=== PATIENT | female | born 1960 ===

== ENCOUNTER 2018-11-23 18:34 | Inpatient (IN) | payer MEDICARE ==
[~2018-11-23] VITALS: Ht 157.5 cm; Wt 86.3 kg
[2018-11-23] MEDS ORDERED: LISI10TA5 PO (18:59)
[2018-11-23] MEDS ORDERED: IBUP-1953 PO (18:59)
[2018-11-23] MEDS ORDERED: SULF1TAB48 PO (18:59)
[2018-11-23] MEDS ORDERED: DULO60CA45 PO (18:59)
[2018-11-23] MEDS ORDERED: VANCOMYCIN IV 1,000 MG in IV DEXTROSE 5% 250 ML IV ONE (19:00)
[2018-11-23] MEDS ORDERED: VANCOMYCIN IV 200 ML ONE (19:08)
[2018-11-23 19:25] LABS: BASOPHILS # (AUTO) 0.1 K/uL (0.0-8.0); BASOPHILS % (AUTO) 0.6 % (0.0-2.0); EOSINOPHILS # (AUTO) 0.5 K/uL (0.0-0.7); EOSINOPHILS % (AUTO) 4.7 % (0.0-7.0); HEMATOCRIT 38.2 % (31.2-41.9); LYMPHOCYTES # (AUTO) 1.2 K/uL (20.0-40.0); LYMPHOCYTES % (AUTO) 12.7 % (20.5-51.5); MEAN CORPUSCULAR HEMOGLOBIN 29.3 uug (24.7-32.8); MEAN CORPUSCULAR HGB CONC 34 g/dL (32.3-35.6); MEAN CORPUSCULAR VOLUME 86.3 fL (75.5-95.3); MONOCYTES # (AUTO) 0.8 K/uL (2.0-10.0); MONOCYTES % (AUTO) 8.4 % (0.0-11.0); NEUTROPHILS # (AUTO) 7.1 K/uL (1.8-8.9); NEUTROPHILS % (AUTO) 73.6 % (38.5-71.5); PLATELET COUNT (AUTO) 323 K/uL (179-408); RED BLOOD CELL COUNT(AUTO) 4.43 MIL/uL (3.63-4.92); WHITE BLOOD COUNT (AUTO) 9.7 K/uL (3.8-11.8)
[2018-11-23 19:50] LABS: CREATININE 1.2 mg/dL (0.6-1.3); POTASSIUM 4.9 mmol/L (3.5-5.1)
[2018-11-23 19:55] LABS: BILIRUBIN,DIRECT 0.1 mg/dL (0.0-0.2); BILIRUBIN,TOTAL 0.3 mg/dL (0.2-1.0); TOTAL PROTEIN, SERUM 9.1 g/dL (6.4-8.2)
[2018-11-23] MEDS ORDERED: MORPHINE SULFATE 4 MG/1 ML DISP.SYRIN ONE (20:42)
[2018-11-23] MEDS ORDERED: ONDANSETRON 4 MG/2 ML VIAL ONE (20:42)
[2018-11-23] MEDS ORDERED: ONDANSETRON 4 MG/2 ML VIAL IV ONE (20:45)
[2018-11-23] MEDS ORDERED: MORPHINE SULFATE 4 MG/1 ML DISP.SYRIN IV ONE (20:45)
[2018-11-23 21:15] VITALS: BP 141/74
[2018-11-23] MEDS ORDERED: ACETAMINOPHEN 325 MG TABLET PO PRN (22:30)
[2018-11-23] MEDS ORDERED: MAGNESIUM HYDROXIDE 30 ML LIQUID UDC PO PRN (22:30)
[2018-11-23] MEDS ORDERED: Z GUARD REMEDY PASTE 57 GM TUBE TOP PRN (22:30)
[2018-11-23] MEDS ORDERED: ONDANSETRON 4 MG/2 ML VIAL IV PRN (22:30)
[2018-11-23] MEDS ORDERED: ZOLPIDEM 5 MG TABLET PO PRN (22:30)
[2018-11-23] MEDS: HYDROCODONE/APAP 10-325 MG TABLET PO PRN (23:35)
[2018-11-23] MEDS: IBUPROFEN 400 MG TABLET PO PRN (23:39)
[2018-11-24 03:46] VITALS: BP 140/60
[2018-11-24 09:26] LABS: BASOPHILS # (AUTO) 0.1 K/uL (0.0-8.0); BASOPHILS % (AUTO) 0.8 % (0.0-2.0); EOSINOPHILS # (AUTO) 0.4 K/uL (0.0-0.7); EOSINOPHILS % (AUTO) 5.7 % (0.0-7.0); HEMATOCRIT 34.4 % (31.2-41.9); HEMOGLOBIN 11.7 g/dL (10.9-14.3); MEAN CORPUSCULAR HEMOGLOBIN 28.9 uug (24.7-32.8); MEAN CORPUSCULAR HGB CONC 34 g/dL (32.3-35.6); MONOCYTES # (AUTO) 0.7 K/uL (2.0-10.0); MONOCYTES % (AUTO) 10.3 % (0.0-11.0); NEUTROPHILS # (AUTO) 4.6 K/uL (1.8-8.9); NEUTROPHILS % (AUTO) 68.2 % (38.5-71.5); PLATELET COUNT (AUTO) 299 K/uL (179-408); RED BLOOD CELL COUNT(AUTO) 4.05 MIL/uL (3.63-4.92); WHITE BLOOD COUNT (AUTO) 6.8 K/uL (3.8-11.8)
[2018-11-24] MEDS: DULOXETINE 60 MG CAPSULE.DR PO SCH (09:34)
[2018-11-24] MEDS: IBUPROFEN 400 MG TABLET PO PRN ×2 (09:39→21:03)
[2018-11-24 09:49] LABS: BILIRUBIN,TOTAL 0.2 mg/dL (0.2-1.0); CREATININE 1.2 mg/dL (0.6-1.3); MAGNESIUM 2.3 mg/dL (1.8-2.4); PHOSPHOROUS 4.4 mg/dL (2.5-4.9); POTASSIUM 3.8 mmol/L (3.5-5.1); TOTAL PROTEIN, SERUM 7.7 g/dL (6.4-8.2)
[2018-11-24] MEDS: LISINOPRIL 10 MG TABLET PO SCH (11:04)
[2018-11-24] MEDS: HYDROCODONE/APAP 10-325 MG TABLET PO PRN ×2 (11:56→21:27)
[2018-11-24 12:28] LABS: THYROID STIMULATING HORMONE 1.924 mIU/mL (0.358-3.740)
[2018-11-24 13:33] LABS: *BILIRUBIN,URIN NEGATIVE (NEGATIVE); *BLOOD, URINE NEGATIVE (NEGATIVE); *CLARITY,URINE CLEAR (CLEAR); *COLOR,URINE YELLOW (YELLOW); *KETONES,URINE NEGATIVE (NEGATIVE); *UROBILINOGEN,URINE 0.2 E.U./dl (NORMAL); LEUKOCYTE ESTERASE ,URINE 1+ (NEGATIVE); NITRITE, URINE NEGATIVE (NEGATIVE); UGLUCOSE NEGATIVE (NEGATIVE)
[2018-11-24 13:39] LABS: BACTERIA,URINE FEW /HPF (NONE SEEN); RBC,URINE 0-3 /HPF (0-3); SQUAMOUS EPITHELIAL CELL,UR FEW /HPF (NONE SEEN); WBC,URINE 20-50 /HPF (0-3)
[2018-11-24 16:00] VITALS: BP 140/83
[2018-11-24 19:29] VITALS: BP 140/81
[2018-11-24] MEDS ORDERED: LEVOFLOXACIN 500 MG TABLET PO SCH (21:45)
[2018-11-24] MEDS ORDERED: VANCOMYCIN IV 1 G in PREMIXED 0 EACH IV ONE (22:00)
[2018-11-24] MEDS: LEVOFLOXACIN 500 MG TABLET PO SCH (22:41)
[2018-11-24] MEDS ORDERED: VANCOMYCIN IV 200 ML ONE (22:50)
[2018-11-25] MEDS: HYDROCODONE/APAP 10-325 MG TABLET PO PRN ×3 (02:33→18:41)
[2018-11-25 03:27] VITALS: BP 119/77
[2018-11-25 08:00] VITALS: BP 123/63
[2018-11-25] MEDS: LISINOPRIL 10 MG TABLET PO SCH (08:54)
[2018-11-25] MEDS: DULOXETINE 60 MG CAPSULE.DR PO SCH (08:54)
[2018-11-25] MEDS: IBUPROFEN 400 MG TABLET PO PRN ×2 (08:55→18:53)
[2018-11-25 09:36] LABS: CREATININE 0.9 mg/dL (0.6-1.3); POTASSIUM 4.2 mmol/L (3.5-5.1)
[2018-11-25 09:40] LABS: MAGNESIUM 2.3 mg/dL (1.8-2.4); PHOSPHOROUS 3.5 mg/dL (2.5-4.9)
[2018-11-25 10:37] LABS: BASOPHILS % (AUTO) 0.9 % (0.0-2.0); EOSINOPHILS # (AUTO) 0.3 K/uL (0.0-0.7); EOSINOPHILS % (AUTO) 5.9 % (0.0-7.0); HEMATOCRIT 35.2 % (31.2-41.9); HEMOGLOBIN 11.7 g/dL (10.9-14.3); LYMPHOCYTES # (AUTO) 0.9 K/uL (20.0-40.0); LYMPHOCYTES % (AUTO) 16.3 % (20.5-51.5); MEAN CORPUSCULAR HEMOGLOBIN 28.6 uug (24.7-32.8); MEAN CORPUSCULAR HGB CONC 33 g/dL (32.3-35.6); MONOCYTES # (AUTO) 0.6 K/uL (2.0-10.0); NEUTROPHILS # (AUTO) 3.5 K/uL (1.8-8.9); NEUTROPHILS % (AUTO) 64.9 % (38.5-71.5); PLATELET COUNT (AUTO) 294 K/uL (179-408); RED BLOOD CELL COUNT(AUTO) 4.09 MIL/uL (3.63-4.92); WHITE BLOOD COUNT (AUTO) 5.3 K/uL (3.8-11.8)
[2018-11-25 12:00] VITALS: BP 138/68
[2018-11-25 16:00] VITALS: BP 143/62
[2018-11-25] MEDS: VANCOMYCIN IV 1,250 MG in IV DEXTROSE 5% 500 ML IV SCH (17:20)
[2018-11-25 19:38] VITALS: BP 104/72
[2018-11-25] MEDS ORDERED: VANCOMYCIN IV 1,250 MG in IV DEXTROSE 5% 500 ML IV SCH (20:00)
[2018-11-25] MEDS: LEVOFLOXACIN 500 MG TABLET PO SCH (21:57)
[2018-11-25] MEDS: CULTURELLE CAPSULE PO SCH (21:57)
[2018-11-26 03:37] VITALS: BP 127/74
[2018-11-26 06:45] LABS: CREATININE 0.8 mg/dL (0.6-1.3); PHOSPHOROUS 3.7 mg/dL (2.5-4.9); POTASSIUM 4.2 mmol/L (3.5-5.1)
[2018-11-26 06:51] LABS: BASOPHILS % (AUTO) 0.3 % (0.0-2.0); EOSINOPHILS # (AUTO) 0.4 K/uL (0.0-0.7); EOSINOPHILS % (AUTO) 7.2 % (0.0-7.0); HEMATOCRIT 35.4 % (31.2-41.9); HEMOGLOBIN 11.9 g/dL (10.9-14.3); LYMPHOCYTES # (AUTO) 1.3 K/uL (20.0-40.0); LYMPHOCYTES % (AUTO) 24.2 % (20.5-51.5); MEAN CORPUSCULAR HEMOGLOBIN 28.9 uug (24.7-32.8); MEAN CORPUSCULAR HGB CONC 34 g/dL (32.3-35.6); MEAN CORPUSCULAR VOLUME 85.9 fL (75.5-95.3); MONOCYTES # (AUTO) 0.7 K/uL (2.0-10.0); MONOCYTES % (AUTO) 12.8 % (0.0-11.0); NEUTROPHILS # (AUTO) 3.1 K/uL (1.8-8.9); NEUTROPHILS % (AUTO) 55.5 % (38.5-71.5); PLATELET COUNT (AUTO) 226 K/uL (179-408); RED BLOOD CELL COUNT(AUTO) 4.12 MIL/uL (3.63-4.92); WHITE BLOOD COUNT (AUTO) 5.6 K/uL (3.8-11.8)
[2018-11-26] MEDS ORDERED: POLYMYXIN B SULFATE 500,000 UNITS, BACITRACIN 50,000 UNITS, NORMAL SALINE 20 ML MC ONE ×3 (07:15)
[2018-11-26] MEDS ORDERED: BUPIVACAINE PF 0.5% 30 ML VIAL ONE (07:35)
[2018-11-26] MEDS ORDERED: LIDOCAINE HCL 1% 20 ML VIAL ONE (07:35)
[2018-11-26 08:13] LABS: EOSINOPHILS % (MANUAL) 6 % (0-8); LYMPHOCYTES % (MANUAL) 27 % (20-40); METAMYELOCYTES % 1 % (0-1); MONOCYTES % (MANUAL) 7 % (2-10); MYELOCYTES % 1 % (0-0); NEUTROPHILS % (MANUAL) 57 % (42-75)
[2018-11-26 08:16] LABS: REACTIVE LYMPHOCYTES 1 % (0-0)
[2018-11-26] MEDS: CULTURELLE CAPSULE PO SCH ×2 (09:00→20:42)
[2018-11-26] MEDS: LISINOPRIL 10 MG TABLET PO SCH (09:00)
[2018-11-26] MEDS: DULOXETINE 60 MG CAPSULE.DR PO SCH (09:00)
[2018-11-26] MEDS ORDERED: FENTANYL CITRATE 100 MCG/2 ML AMPUL ONE ×2 (09:25→10:24)
[2018-11-26] MEDS ORDERED: BUPIVACAINE/EPI PF 0.5% 10 ML VIAL ONE (10:49)
[2018-11-26 11:48] VITALS: BP 108/52
[2018-11-26] MEDS ORDERED: IRR NORMAL SALINE IRRIGATION 2000 ML BOTTLE IR ONE (11:59)
[2018-11-26] MEDS ORDERED: DEXAMETHASONE SOD PHOSPHATE 4 MG INJ IV ONE (11:59)
[2018-11-26] MEDS ORDERED: VECURONIUM BROMIDE 10 MG VIAL IV ONE (11:59)
[2018-11-26] MEDS ORDERED: PROPOFOL 200 MG/20 ML BOTTLE IV ONE (11:59)
[2018-11-26] MEDS ORDERED: SEVOFLURANE 250 ML BOTTLE IH ONE (11:59)
[2018-11-26] MEDS ORDERED: IV LACTATED RINGERS SOLUTION 1,000 ML BAG IV ONE (11:59)
[2018-11-26] MEDS ORDERED: SUCCINYLCHOLINE CHLORIDE 200 MG/10 ML VIAL MC ONE (11:59)
[2018-11-26] MEDS ORDERED: EPHEDRINE SULFATE 50 MG/ML AMPUL MC ONE (11:59)
[2018-11-26] MEDS: HYDROCODONE/APAP 10-325 MG TABLET PO PRN ×2 (12:03→20:44)
[2018-11-26] MEDS: VANCOMYCIN IV 1,250 MG in IV DEXTROSE 5% 500 ML IV SCH (12:43)
[2018-11-26 15:20] VITALS: BP 111/45
[2018-11-26] MEDS: KETOROLAC TROMETHAMINE 15 MG INJ IVP PRN ×2 (16:31→22:38)
[2018-11-26 20:24] VITALS: BP 123/69
[2018-11-26] MEDS: ASCORBIC ACID 500 MG TABLET PO SCH (20:42)
[2018-11-26] MEDS: LEVOFLOXACIN 500 MG TABLET PO SCH (20:45)
[2018-11-27] MEDS: HYDROCODONE/APAP 10-325 MG TABLET PO PRN ×2 (02:55→14:11)
[2018-11-27 06:14] VITALS: BP 124/68
[2018-11-27] MEDS: VANCOMYCIN IV 1,250 MG in IV DEXTROSE 5% 500 ML IV SCH ×3 (08:40→14:32)
[2018-11-27] MEDS: MULTIVITAMINS,THERAPEUTIC TABLET PO SCH (08:41)
[2018-11-27] MEDS: CULTURELLE CAPSULE PO SCH ×2 (08:41→20:40)
[2018-11-27] MEDS: ASCORBIC ACID 500 MG TABLET PO SCH ×2 (08:41→20:40)
[2018-11-27] MEDS: KETOROLAC TROMETHAMINE 15 MG INJ IVP PRN ×2 (08:41→18:01)
[2018-11-27] MEDS: DULOXETINE 60 MG CAPSULE.DR PO SCH (08:41)
[2018-11-27] MEDS: LISINOPRIL 10 MG TABLET PO SCH (08:42)
[2018-11-27 08:52] LABS: BASOPHILS # (AUTO) 0.1 K/uL (0.0-8.0); BASOPHILS % (AUTO) 1.4 % (0.0-2.0); EOSINOPHILS # (AUTO) 0.1 K/uL (0.0-0.7); HEMATOCRIT 33.8 % (31.2-41.9); HEMOGLOBIN 11.4 g/dL (10.9-14.3); LYMPHOCYTES # (AUTO) 1.4 K/uL (20.0-40.0); LYMPHOCYTES % (AUTO) 20.4 % (20.5-51.5); MEAN CORPUSCULAR HEMOGLOBIN 28.6 uug (24.7-32.8); MEAN CORPUSCULAR HGB CONC 34 g/dL (32.3-35.6); MEAN CORPUSCULAR VOLUME 84.8 fL (75.5-95.3); MONOCYTES # (AUTO) 0.7 K/uL (2.0-10.0); MONOCYTES % (AUTO) 10.3 % (0.0-11.0); NEUTROPHILS # (AUTO) 4.5 K/uL (1.8-8.9); NEUTROPHILS % (AUTO) 66.9 % (38.5-71.5); PLATELET COUNT (AUTO) 317 K/uL (179-408); RED BLOOD CELL COUNT(AUTO) 3.98 MIL/uL (3.63-4.92); WHITE BLOOD COUNT (AUTO) 6.7 K/uL (3.8-11.8)
[2018-11-27 08:59] LABS: CREATININE 0.8 mg/dL (0.6-1.3); MAGNESIUM 2.1 mg/dL (1.8-2.4); PHOSPHOROUS 3.8 mg/dL (2.5-4.9); POTASSIUM 3.8 mmol/L (3.5-5.1)
[2018-11-27] MEDS ORDERED: ZINC SULFATE 220 MG CAPSULE PO SCH (09:00)
[2018-11-27 11:30] VITALS: BP 125/68
[2018-11-27 15:00] VITALS: BP 133/64
[2018-11-27 19:00] VITALS: BP 142/73
[2018-11-27] MEDS: DOXYCYCLINE HYCLATE 100 MG TABLET PO SCH (20:40)
[2018-11-27] MEDS: LEVOFLOXACIN 500 MG TABLET PO SCH (21:25)
[2018-11-28] MEDS: KETOROLAC TROMETHAMINE 15 MG INJ IVP PRN ×4 (00:31→21:15)
[2018-11-28 05:00] VITALS: BP 139/68
[2018-11-28] MEDS: CULTURELLE CAPSULE PO SCH ×2 (08:41→20:00)
[2018-11-28] MEDS: DULOXETINE 60 MG CAPSULE.DR PO SCH (08:41)
[2018-11-28] MEDS: MULTIVITAMINS,THERAPEUTIC TABLET PO SCH (08:41)
[2018-11-28] MEDS: LISINOPRIL 10 MG TABLET PO SCH (08:42)
[2018-11-28] MEDS: DOXYCYCLINE HYCLATE 100 MG TABLET PO SCH ×2 (08:42→20:00)
[2018-11-28] MEDS: ZINC SULFATE 220 MG CAPSULE PO SCH (08:42)
[2018-11-28] MEDS: ASCORBIC ACID 500 MG TABLET PO SCH ×2 (08:51→20:00)
[2018-11-28] MEDS ORDERED: VANCOMYCIN IV 1,250 MG in IV DEXTROSE 5% 500 ML IV SCH (09:00)
[2018-11-28 11:38] VITALS: BP 150/78
[2018-11-28 15:30] VITALS: BP 121/61
[2018-11-28 20:49] VITALS: BP 112/40
[2018-11-28] MEDS: LEVOFLOXACIN 500 MG TABLET PO SCH (21:09)
[2018-11-29] MEDS: KETOROLAC TROMETHAMINE 15 MG INJ IVP PRN ×2 (06:42→12:47)
[2018-11-29 07:17] LABS: CREATININE 0.8 mg/dL (0.6-1.3); POTASSIUM 3.9 mmol/L (3.5-5.1)
[2018-11-29 07:28] LABS: BASOPHILS # (AUTO) 0.1 K/uL (0.0-8.0); EOSINOPHILS # (AUTO) 0.2 K/uL (0.0-0.7); EOSINOPHILS % (AUTO) 3.8 % (0.0-7.0); HEMATOCRIT 34.8 % (31.2-41.9); HEMOGLOBIN 11.4 g/dL (10.9-14.3); LYMPHOCYTES # (AUTO) 1.7 K/uL (20.0-40.0); LYMPHOCYTES % (AUTO) 27.5 % (20.5-51.5); MEAN CORPUSCULAR HEMOGLOBIN 27.9 uug (24.7-32.8); MEAN CORPUSCULAR HGB CONC 33 g/dL (32.3-35.6); MEAN CORPUSCULAR VOLUME 84.8 fL (75.5-95.3); MONOCYTES # (AUTO) 0.5 K/uL (2.0-10.0); MONOCYTES % (AUTO) 8.6 % (0.0-11.0); NEUTROPHILS # (AUTO) 3.6 K/uL (1.8-8.9); NEUTROPHILS % (AUTO) 59.1 % (38.5-71.5); PLATELET COUNT (AUTO) 341 K/uL (179-408); WHITE BLOOD COUNT (AUTO) 6.1 K/uL (3.8-11.8)
[2018-11-29] MEDS: DOXYCYCLINE HYCLATE 100 MG TABLET PO SCH (08:03)
[2018-11-29] MEDS: ASCORBIC ACID 500 MG TABLET PO SCH (08:03)
[2018-11-29] MEDS: CULTURELLE CAPSULE PO SCH (08:03)
[2018-11-29] MEDS: LISINOPRIL 10 MG TABLET PO SCH (08:03)
[2018-11-29] MEDS: MULTIVITAMINS,THERAPEUTIC TABLET PO SCH (08:03)
[2018-11-29] MEDS: DULOXETINE 60 MG CAPSULE.DR PO SCH (08:03)
[2018-11-29] MEDS: ZINC SULFATE 220 MG CAPSULE PO SCH (10:47)
[2018-11-29 11:00] VITALS: BP 134/66
[2018-11-29] MEDS ORDERED: ASCO500T9 PO (12:30)
[2018-11-29] MEDS ORDERED: HYDR-4354 PO (12:30)
[2018-11-29] MEDS ORDERED: LACT1CAP57 PO (12:30)
[2018-11-29] MEDS ORDERED: LEVO500T2 PO (12:30)
[2018-11-29] MEDS ORDERED: MULT-24 PO (12:30)
[2018-11-29] MEDS ORDERED: DOXY100T2 PO (12:30)
[2018-11-29] MEDS ORDERED: ZINC220C8 PO (12:30)
== END 2018-11-29 14:18 | disposition home health service (06) | DRG 988 ==
LOC: ER 18:36 → MED 20:58
PROVIDERS: ADMIT Nurse Practitioner Acute Care; ATTEND Nurse Practitioner Acute Care
PROC: 0QBM0ZZ Excision of Left Tarsal, Open Approach (ICD-10-PCS; principal; 2018-11-26)
PROC: 05HY33Z Insertion of Infusion Device into Upper Vein, Percutaneous Approach (ICD-10-PCS; 2018-11-27)
DX: L97.424 Non-pressure chronic ulcer of left heel and midfoot with necrosis of bone (principal); E87.1 Hypo-osmolality and hyponatremia; E44.1 Mild protein-calorie malnutrition; I87.2 Venous insufficiency (chronic) (peripheral); S92.002S Unspecified fracture of left calcaneus, sequela; X58.XXXS Exposure to other specified factors, sequela; Q05.9 Spina bifida, unspecified; F17.290 Nicotine dependence, other tobacco product, uncomplicated; Z88.0 Allergy status to penicillin; E66.9 Obesity, unspecified; Z68.34 Body mass index [BMI] 34.0-34.9, adult; Z71.3 Dietary counseling and surveillance; N31.9 Neuromuscular dysfunction of bladder, unspecified; M54.5 Low back pain; Z82.49 Family history of ischemic heart disease and other diseases of the circulatory system; Z79.899 Other long term (current) drug therapy; G89.29 Other chronic pain
CPT/HCPCS: 36415; 36569; 71045; 73630; 83735; 84100; 84443; 85025; 85651; 85730; 87070; 93005; A4217; A4649; A4663; G0378; J0330; J1100; J1885; J2270; J2405; J3010; J3370; J3490; J7040; J7050; J7060; J7120

== ENCOUNTER 2018-11-26 07:00 | Day surgery (SDC) | payer MEDICARE ==
[~2018-11-26 07:00] MED LIST: DULO60CA45 PO; IBUP-1953 PO; LISI10TA5 PO; SULF1TAB48 PO
[2018-11-26] MEDS ORDERED: BUPIVACAINE/EPI PF 0.5% 10 ML VIAL ONE (08:26)
[2018-11-26] MEDS ORDERED: FENTANYL CITRATE 100 MCG/2 ML AMPUL ONE (10:24)
== END 2018-11-26 23:59 | disposition home or self-care (01) ==
LOC: DS 07:00
PROVIDERS: ATTEND Podiatrist Foot & Ankle Surgery
DX: Z75.3 Unavailability and inaccessibility of health-care facilities (principal)
CPT/HCPCS: 87070; J3010; J3490